=== PATIENT | male | born 1930 | race Caucasian/White ===

== ENCOUNTER 2017-12-26 12:59 | Outpatient (CLI) | payer MEDICARE, OTHER | END 2017-12-26 13:00 | disposition EMS.NT | LOC: EMS 12:59 | PROVIDERS: ATTEND Surgery | DX: R50.9 Fever, unspecified (principal) ==

== ENCOUNTER 2018-02-12 04:25 | Outpatient (CLI) | payer MEDICARE, OTHER | END 2018-02-12 04:26 | disposition critical access hospital (66) | LOC: EMS 04:25 | PROVIDERS: ATTEND Surgery | DX: S09.90XA Unspecified injury of head, initial encounter (principal); W01.198A Fall on same level from slipping, tripping and stumbling with subsequent striking against other object, initial encounter; Y93.01 Activity, walking, marching and hiking; Y92.098 Other place in other non-institutional residence as the place of occurrence of the external cause | CPT/HCPCS: A0425; A0429 ==

== ENCOUNTER 2018-02-12 04:43 | Emergency (ER) | payer MEDICARE, OTHER ==
--- NOTE | 2018-02-12 05:19 | ED Physician Documentation ---
PD HPI Fall - Stated complaint Stated Complaint: GLF - Chief complaint Chief Complaint: Trauma Hd/Nk - History obtained from History obtained from: EMS - History of Present Illness Mechanism of injury: Tripped Fall distance: Standing position Where injury occurred: Other (assisted living facility) Timing - onset: How many hours ago (less than one hour APPLICATIONS SPECIALIST) Injury(ies) location: Head Contributing factors: No: Anticoagulated - Additional information Additional information: Patient does not provide any meaningful contribution to HPI or review of systems; it is unclear if this is due to dementia or hard of hearing. Per staff at assisted living facility, patient had a witnessed trip and fall shortly before arrival to ED. Patient denies having any pain. He is aware there is a bump on his head, but tells me I have no idea as to how long it has been there. he is extremely hard of hearing, and I communicate by writing down questions. He provides simple answers to my questions, and is mostly aggravated at how long he has been here and just wants to go back home. Review of Systems Unable to obtain: Other (see HPI) PD PAST MEDICAL HISTORY - Past Medical History Cardiovascular: High cholesterol, Atrial fibrillation, Hypertension Respiratory: COPD Endocrine/Autoimmune: Type 2 diabetes GI: Hepatitis, Diverticulitis : Benign prostate hypertrophy, Incontinence HEENT: Chronic hearing loss Psych: None Musculoskeletal: Osteoarthritis Derm: None - Past Surgical History Past Surgical History: Yes General: Bowel surgery - Present Medications Home Medications: Ambulatory Orders Medication Instructions Recorded Confirmed Desipramine HCl [Norpramin] 10 mg PO DAILY 08/05/14 09/27/14 Digoxin 1 tab DAILY 08/05/14 09/27/14 Donepezil HCl [Aricept] 1 tab DAILY 08/05/14 09/27/14 Duloxetine HCl [Cymbalta] 2 tab DAILY 08/05/14 09/27/14 Finasteride 1 tab DAILY 08/05/14 09/27/14 Gabapentin 1 tab BID 08/05/14 09/27/14 Metformin HCl [Glucophage] 1 tab BID 08/05/14 09/27/14 Potassium Chloride 1 tab DAILY 08/05/14 09/27/14 Simvastatin [Zocor] 1 tab QPM 08/05/14 09/27/14 Tamsulosin [Flomax] 1 tab DAILY 08/05/14 09/27/14 - Allergies Allergies/Adverse Reactions: Allergies Allergy/AdvReac Type Severity Reaction Status Date / Time No Known Drug Allergies Allergy Verified 02/12/18 04:51 - Social History Does the pt smoke?: No Smoking Status: Never smoker Does the pt drink ETOH?: No Does the pt have substance abuse?: No - Immunizations Immunizations are current?: Yes - POLST Patient has POLST: Yes PD ED PE NORMAL - Vitals Vital signs reviewed: Yes - General General: No acute distress, Well developed/nourished, Other (oriented x 2) - HEENT HEENT: PERRL, EOMI - Neck Neck: No bony TTP - Cardiac Cardiac: RRR, No murmur - Respiratory Respiratory: No respiratory distress, Clear bilaterally - Back Back: No spinal TTP - Extremities Extremities: No deformity, No tenderness to palpate, Normal ROM s pain PD ED PE EXPANDED - HEENT HEENT Visual: 1 - bruising, swelling, tenderness Results - Vitals Vitals: Vital Signs - 24 hr 02/12/18 02/12/18 04:44 07:06 Temperature 36.0 C L Heart Rate 66 70 Respiratory 18 18 Rate Blood Pressure 192/89 H 176/94 H O2 Saturation 95 92 Oxygen O2 Source Room air - Rads (name of study) CT head Radiology: Prelim report reviewed, See rad report PD MEDICAL DECISION MAKING - ED course Complexity details: reviewed results, re-evaluated patient, considered differential, d/w patient Departure - Departure Disposition: 01 Home, Self Care Clinical Impression: Fall, Closed head injury, Scalp hematoma Condition: Good Instructions: ED Contusion Scalp, ED Head Injury Closed Follow-Up: Seth Diaz MD [Primary Care Provider] - Discharge Date/Time: 02/12/18 07:07
--- NOTE | 2018-02-12 06:24 | CT Report ---
Reason: fall, right scalp hematoma Procedure Date: 02/12/2018 Accession Number: [id number] / [id number] Procedure: CT - Head W/O CPT Code: FULL RESULT: EXAM: CT HEAD EXAM DATE: 02/12/2018 05:53 AM. CLINICAL HISTORY: Fall, right scalp hematoma, head pain. COMPARISON: BRAIN 07/29/2012 11:13 AM. TECHNIQUE: Multiaxial CT images were obtained from the foramen magnum to the vertex. Reformats: Sagittal and coronal. IV contrast: None. In accordance with CT protocol optimization, one or more of the following dose reduction techniques were utilized for this exam: automated exposure control, adjustment of mA and/or KV based on patient size, or use of iterative reconstructive technique. FINDINGS: Parenchyma: No intraparenchymal hemorrhage. No evidence of mass, midline shift, or CT findings of acute infarction. Shipman-white differentiation is distinct. Mild diffuse chronic microangiopathic white matter changes are evident. Extraaxial Spaces: Normal for age. No subdural or epidural collections identified. Ventricles: The ventricles and cortical sulci are moderately enlarged, consistent with age-related tissue loss. Sinuses and orbits: Postsurgical changes from cataract extractions are noted in the globes. The paranasal and mastoid sinuses are not opacified. Bones: No evidence of fracture or calvarial defect. Other: Mild intracranial atherosclerosis is present. IMPRESSION: 1. No acute intracranial process. 2. Large right parietal scalp hematoma without calvarial fracture. RADIA
[2018-02-12 07:07] VITALS: BP 176/94
== END 2018-02-12 07:07 | disposition home or self-care (01) ==
LOC: EDUNIT# → ED 04:43
DX: S00.03XA Contusion of scalp, initial encounter (principal); S09.90XA Unspecified injury of head, initial encounter; W01.0XXA Fall on same level from slipping, tripping and stumbling without subsequent striking against object, initial encounter; Y92.099 Unspecified place in other non-institutional residence as the place of occurrence of the external cause; H91.90 Unspecified hearing loss, unspecified ear; I10 Essential (primary) hypertension; E11.9 Type 2 diabetes mellitus without complications; Z79.84 Long term (current) use of oral hypoglycemic drugs
CPT/HCPCS: 36415; 70450; 99282; 99283

== ENCOUNTER 2018-04-06 23:00 | Outpatient (CLI) | payer MEDICARE, OTHER | END 2018-04-06 23:01 | disposition EMS.NT | LOC: EMS 23:00 | PROVIDERS: ATTEND Surgery | DX: Z03.89 Encounter for observation for other suspected diseases and conditions ruled out (principal) ==

== ENCOUNTER 2018-07-27 23:57 | Outpatient (CLI) | payer MEDICARE, OTHER | END 2018-07-27 23:58 | disposition critical access hospital (66) | LOC: EMS 23:57 | PROVIDERS: ATTEND Surgery | DX: S01.01XA Laceration without foreign body of scalp, initial encounter (principal); W18.30XA Fall on same level, unspecified, initial encounter; Y92.099 Unspecified place in other non-institutional residence as the place of occurrence of the external cause | CPT/HCPCS: A0425; A0429 ==

== ENCOUNTER 2018-07-28 00:13 | Emergency (ER) | payer MEDICARE, OTHER ==
--- NOTE | 2018-07-28 00:26 | ED Physician Documentation ---
History of Present Illness - Stated complaint Stated Complaint: GLF - Chief complaint Chief Complaint: Laceration - History obtained from History obtained from: Patient - History of Present Illness Timing: Prior to arrival - Additonal information Additional information: Patient is an 88-year-old male presenting from nursing facility after mechanical fall just prior to arrival. Patient reports that he tripped and excellently struck his head on a piece of furniture, likely a chair. Patient complains of laceration with bleeding and mild tenderness to the back of his head. No LOC. Patient denies other head pain, vision changes, epistaxis, intraoral trauma, as well as neck pain, back pain, chest pain, abdominal pain, or extremity injury. Patient does admit to superficial abrasion to right knee only. Patient denies any particular symptoms or changes from his baseline health prior to fall.No anticoagulation. Assuming vaccinations are current as patient is in a facility. No other improving or worsening factors noted. Review of Systems Skin: reports: Abrasion (s) Neurologic: reports: Headache, Head injury. denies: LOC PD PAST MEDICAL HISTORY - Past Medical History Cardiovascular: High cholesterol, Atrial fibrillation, Hypertension Respiratory: COPD Endocrine/Autoimmune: Type 2 diabetes GI: Hepatitis, Diverticulitis : Benign prostate hypertrophy, Incontinence HEENT: Chronic hearing loss Psych: None Musculoskeletal: Osteoarthritis Derm: None - Past Surgical History Past Surgical History: Yes General: Bowel surgery - Present Medications Home Medications: Ambulatory Orders Medication Instructions Recorded Confirmed Digoxin 1 tab DAILY 08/05/14 07/28/18 Duloxetine HCl [Cymbalta] 2 tab DAILY 08/05/14 07/28/18 Finasteride 1 tab DAILY 08/05/14 07/28/18 Gabapentin 1 tab BID 08/05/14 07/28/18 Metformin HCl [Glucophage] 1 tab BID 08/05/14 07/28/18 Potassium Chloride 1 tab DAILY 08/05/14 07/28/18 Simvastatin [Zocor] 1 tab QPM 08/05/14 07/28/18 Tamsulosin [Flomax] 1 tab DAILY 08/05/14 07/28/18 Acetaminophen [Tylenol] 650 mg PO Q6H PRN 07/28/18 07/28/18 Bisacodyl 10 mg RC PRN 07/28/18 07/28/18 Calcium Carb/Magnesium Hydrox 1 each PO 07/28/18 [Antacid Extra Strngth Tab Chew] Furosemide 40 mg PO 07/28/18 Ibuprofen [Motrin] 400 mg PO 07/28/18 - Allergies Allergies/Adverse Reactions: Allergies Allergy/AdvReac Type Severity Reaction Status Date / Time No Known Drug Allergies Allergy Verified 02/12/18 04:51 - Social History Does the pt smoke?: No Smoking Status: Never smoker Does the pt drink ETOH?: No Does the pt have substance abuse?: No - Immunizations Immunizations are current?: Yes - POLST Patient has POLST: Yes PD ED PE NORMAL - Vitals Vital signs reviewed: Yes - General General: Alert and oriented X 3, No acute distress, Well developed/nourished - HEENT HEENT: EOMI (No epistaxis. Gross visual acuity intact.), Moist mucous membranes, Pharynx benign, Dentition benign (Dentures in place). No: Atraumatic (Atraumatic without periorbital swelling or ecchymosis, facial bone tenderness or instability, epistaxis, raccoon eyes, clark signs except for less than 1 inch superficial abrasion to top of scalp.) - Neck Neck: No bony TTP - Cardiac Cardiac: RRR, No murmur - Respiratory Respiratory: No respiratory distress, Clear bilaterally - Abdomen Abdomen: Soft, Non tender, Non distended - Derm Derm: Normal color, Warm and dry, No rash, Other (Less than dime size superficial abrasion to right knee without signs of infection or other complication. No tenderness to the area.) - Extremities Extremities: No deformity, No tenderness to palpate, No edema, No calf tenderness / cord - Neuro Neuro: Alert and oriented X 3, No motor deficit, No sensory deficit - Psych Psych: Normal mood, Normal affect Results - Vitals Vitals: Vital Signs - 24 hr 07/28/18 00:21 Temperature 36.6 C Heart Rate 53 L Respiratory 20 Rate Blood Pressure 150/98 H O2 Saturation 97 Oxygen O2 Source Room air Procedures - Laceration (location) Scalp Length in cm: 1.5 Wound type: Linear, Superficial Neurovascular status: Sensory intact, Motor intact, Vascular intact Wound Preparation: Irrigated copiously NS Skin layer closure: Kyra (2) Other: Patient tolerated well, No complications, Neurovascular intact Complexity: Simple PD MEDICAL DECISION MAKING - ED course Complexity details: reviewed results, re-evaluated patient, considered differential, d/w patient ED course: Patient presenting after mechanical fall. Patient denies symptoms would raise high suspicion for acute pathology such as stroke, PE, ACS, alcohol infarction, unstable angina, or other infection as source of fall. Patient sustained superficial laceration to his scalp which was appropriately cleaned and repaired in the ED without issue.CT head obtained to rule out stroke or intracranial injury from fall, which returned without acute pathology. Do not feel patient requires other invasive testing or imaging at this time. Of note, patient was ambulatory in the ED and was found sitting in the hallway. It is unclear if patient fell, but he denies such and otherwise states he has no complaints. Feel that this is likely his baseline. Repeat exam does not find evidence of new acute pathology. Feel that he is still safe to discharge home. Discussed return precautions, appropriate follow-up, timing of staple removal, and other supportive cares. Departure - Departure Clinical Impression: Laceration Closed head injury Qualifiers: Encounter type: initial encounter Qualified Code(s): S09.90XA - Unspecified injury of head, initial encounter Condition: Good Instructions: ED Laceration Scalp Stitch Or Stap, ED Head Injury Closed Follow-Up: Kei Mcnulty DO [Primary Care Provider] - Within 3 Days Comments: Please continue all home medications as previously instructed. Please keep wound clean and dry using shampoo and running water to clean only. Do not scrub.Please return to the ED, urgent care, your primary care physician in 10 days for staple removal. Please be aware of possible concussion and closed head injury and advise following of Concussion restrictions and precautions. Recommend follow-up with primary care physician next 2 to 3 days for reevaluation of this and hopefully approval to return to full activity. Return to ED sooner if experience worsening symptoms or other concerns.
--- NOTE | 2018-07-28 01:59 | CT Report ---
Reason: fall with lac to posterior scalp Procedure Date: 07/28/2018 Accession Number: [id number] / [id number] Procedure: CT - HEAD WO CPT Code: FULL RESULT: EXAM: CT HEAD EXAM DATE: 07/28/2018 01:16 AM. CLINICAL HISTORY: Fall with laceration to posterior scalp. COMPARISON: HEAD W/O 02/12/2018 5:35 AM. TECHNIQUE: Multiaxial CT images were obtained from the foramen magnum to the vertex. Reformats: Sagittal and coronal. IV contrast: None. In accordance with CT protocol optimization, one or more of the following dose reduction techniques were utilized for this exam: automated exposure control, adjustment of mA and/or KV based on patient size, or use of iterative reconstructive technique. FINDINGS: Parenchyma: No intraparenchymal hemorrhage. No evidence of mass, midline shift, or CT findings of acute infarction. Shipman-white differentiation is distinct. Diffuse chronic microangiopathic white matter changes are evident. Extraaxial Spaces: Normal for age. No subdural or epidural collections identified. Ventricles: The ventricles and cortical sulci are enlarged, consistent with age-related tissue loss. Sinuses and orbits: Imaged paranasal sinuses, orbits, and mastoids show no significant abnormality. Bones: No evidence of fracture or calvarial defect. Other: Scalp laceration at the vertex with skin sylwia. IMPRESSION: Generalized age-related cortical atrophic changes without evidence of acute intracranial abnormality. RADIA
[2018-07-28 02:57] VITALS: BP 164/100
== END 2018-07-28 02:57 | disposition home or self-care (01) ==
LOC: EDUNIT# → ED 00:13
DX: S01.01XA Laceration without foreign body of scalp, initial encounter (principal); S09.90XA Unspecified injury of head, initial encounter; S80.211A Abrasion, right knee, initial encounter; W01.190A Fall on same level from slipping, tripping and stumbling with subsequent striking against furniture, initial encounter; Y92.129 Unspecified place in nursing home as the place of occurrence of the external cause; I10 Essential (primary) hypertension; E11.9 Type 2 diabetes mellitus without complications; Z79.84 Long term (current) use of oral hypoglycemic drugs
CPT/HCPCS: 12001; 70450; 99282

== ENCOUNTER 2018-07-28 02:58 | Outpatient (CLI) | payer MEDICARE, OTHER | END 2018-07-28 02:59 | disposition home or self-care (01) | LOC: EMS 02:58 | PROVIDERS: ATTEND Surgery | DX: S01.01XA Laceration without foreign body of scalp, initial encounter (principal); F03.90 Unspecified dementia, unspecified severity, without behavioral disturbance, psychotic disturbance, mood disturbance, and anxiety; W18.30XA Fall on same level, unspecified, initial encounter | CPT/HCPCS: A0425; A0428 ==

== ENCOUNTER 2018-08-29 13:06 | Day surgery (SDC) | payer MEDICARE, OTHER ==
[~2018-08-29 13:06] MED LIST: CEFAZOLIN SODIUM IN 0.9 % NACL 2 GM/100 ML BAG IV ONE
[2018-08-29] MEDS ORDERED: BUPIVACAINE 0.5%-EPI 1:200000 PF 30 ML VIAL ONE (13:12)
[2018-08-29] MEDS ORDERED: LIDOCAINE-MPF 1% 30 ML VIAL ONE (13:12)
--- NOTE | 2018-08-29 13:26 | ANESTHESIA ---
Pre-Anesthesia VS, & Labs - Diagnosis Right buttock hematoma - Procedure Incision/drainage right buttock hematoma Height 6 ft Body Mass Index 24.4 - NPO >8 hours Home Medications and Allergies Home Medications: Ambulatory Orders Loperamide [Imodium] 2 tab PO ONCE 08/29/18 Mag Hydrox/Al Hydrox/Simeth [Antacid Suspension] 30 ml PO Q4HR PRN 08/29/18 Magnesium Hydroxide [Milk of Magnesia] 30 ml PO ONCE PRN 08/29/18 Digoxin 0.125 mg PO DAILY 08/05/14 Duloxetine HCl [Cymbalta] 60 mg PO DAILY 08/05/14 Finasteride 5 mg PO DAILY 08/05/14 Gabapentin 300 tab PO QPM 08/05/14 Metformin HCl [Glucophage] 500 mg PO BID 08/05/14 Potassium Chloride 20 meq PO DAILY 08/05/14 Simvastatin [Zocor] 20 mg PO QPM 08/05/14 Tamsulosin [Flomax] 0.4 mg PO DAILY 08/05/14 Acetaminophen [Tylenol] 650 mg PO Q6H PRN 07/28/18 Bisacodyl 10 mg RC ONCE 07/28/18 Calcium Carb/Magnesium Hydrox [Antacid Extra Strngth Tab Chew] 2 tab PO DAILY 07/28/18 Furosemide 40 mg PO DAILY 07/28/18 Ibuprofen [Motrin] 400 mg PO DAILY 07/28/18 Loperamide [Imodium] 2 tab PO ONCE 08/29/18 Mag Hydrox/Al Hydrox/Simeth [Antacid Suspension] 30 ml PO Q4HR PRN 08/29/18 Magnesium Hydroxide [Milk of Magnesia] 30 ml PO ONCE PRN 08/29/18 Allergies/Adverse Reactions: Allergies Allergy/AdvReac Type Severity Reaction Status Date / Time No Known Drug Allergies Allergy Verified 02/12/18 04:51 Anes History & Medical History - Anesthetic History Anesthesia Complications: reports: Emergence delirium Family history of Anesthesia Complications: Denies Family history of Malignant Hyperthermia: Denies - Medical History Cardiovascular: reports: High cholesterol, Atrial fibrillation, Hypertension Pulmonary: reports: COPD Gastrointestinal: reports: Hepatitis, Diverticulitis Urinary: reports: Benign prostate hypertrophy, Incontinence Musculoskeletal: reports: Osteoarthritis Endocrine/Autoimmune: reports: Type 2 diabetes Blood Disorders: reports: None Skin: reports: None Smoking Status: Never smoker - Surgical History General: Bowel surgery Exam General: Other (dementia) Dental: Loose/Frag, Dentures full Upper Mouth Openin Fingerbreadth Neck Mobility: Normal Mallampati classification: II Thyromental Distance: greater than 6 cm Respiratory: Lungs clear Cardiovascular: Normal S1, Normal S2 Plan Anesthesia Type: General Consent for Procedure(s) Verified and Reviewed: Yes Code Status: Attempt Resuscitation ASA classification: 3-Severe systemic disease Is this case an emergency?: No
[2018-08-29] MEDS ORDERED: LACTATED RINGERS 1,000 ML IV ONE (13:40)
[2018-08-29] MEDS ORDERED: LIDOCAINE 1% 50 ML MDV SUBQ ONE ×2 (14:20)
[2018-08-29] MEDS ORDERED: BUPIVACAINE 0.5%-EPI 1:200000 PF 30 ML VIAL SUBQ ONE ×2 (14:20)
[2018-08-29] MEDS ORDERED: PROPOFOL 200 MG/20 ML VIAL IVP ONE (14:45)
[2018-08-29] MEDS ORDERED: fentaNYL 100 MCG/2 ML VIAL IVP ONE (14:45)
[2018-08-29] MEDS ORDERED: HYDROcod/ACETAM 5/325 MG TABLET PO PRN (14:59)
--- NOTE | 2018-08-29 15:44 | OPERATIVE REPORT ---
Operative Report - General Procedure Date: 08/29/18 Planned Procedure: Incision and drainage of right buttock hematoma Pre-Op Diagnosis: Large right buttock hematoma Procedure Performed: Incision and drainage of right buttock hematoma with drain placement Post Op Diagnosis: Same - Procedure Note Primary Surgeon: Chichi Anesthesia Provider: SLICK Tyler Anesthesia Technique: Local, MAC Estimated Blood Loss (mL): 10 Drain/Tube Type: Maximino drain (19 [place] Maximino drain in the hematoma pocket) Findings: 260 mls of clotted and liquid blood Complications: None apparent - Other Other Information/Narrative: After obtaining informed consent the patient is brought to the operating room and placed in the left lateral decubitus position on his bed.Following successful induction of sedation per anesthesia, the right buttock and hip were prepped and draped in standard surgical fashion. A timeout was held per NMOAP protocol. Following infiltration with local anesthetic to create a field block, an incision was created in the more superior portion of the pocket approximately 2 cm long.Suction was placed in the pocket and liquid blood was aspirated.The surgeon's finger was placed in the pocket to break up the mural thrombus along the edges and this was aspirated as well. The pocket was then irrigated with 2 L of warm saline solution and aspirated free of all blood and particulate m atter.In 19 [place] Maximino drain was placed in the pocket and brought out laterally. It was sewn into place with nylon suture. The incision was closed with running and interrupted nylons. All sponge, needle, and instrument counts were correct at the conclusion of the case the patient was allowed to awaken from sedation without significant difficulty and taken back to the postanesthesia care unit in good condition.
[2018-08-29 16:05] VITALS: BP 135/92
== END 2018-08-29 13:07 | disposition home or self-care (01) ==
LOC: SDS 13:06
PROVIDERS: ATTEND Surgery
PROC: 0H98XZZ Drainage of Buttock Skin, External Approach (ICD-10-PCS; principal; 2018-08-29 14:15)
DX: S30.0XXA Contusion of lower back and pelvis, initial encounter (principal); H91.90 Unspecified hearing loss, unspecified ear; G30.9 Alzheimer's disease, unspecified; F02.80 Dementia in other diseases classified elsewhere, unspecified severity, without behavioral disturbance, psychotic disturbance, mood disturbance, and anxiety; E11.9 Type 2 diabetes mellitus without complications; I48.91 Unspecified atrial fibrillation; I11.0 Hypertensive heart disease with heart failure; I50.9 Heart failure, unspecified; J44.9 Chronic obstructive pulmonary disease, unspecified; Z91.81 History of falling; Z79.899 Other long term (current) drug therapy; Z79.84 Long term (current) use of oral hypoglycemic drugs; Z87.891 Personal history of nicotine dependence
CPT/HCPCS: 10140; J0690; J7120

== ENCOUNTER 2019-03-22 15:26 | Outpatient (CLI) | payer MEDICARE, OTHER ==
--- NOTE | 2019-03-23 03:39 | Ultrasound Report ---
Reason: CONTUSION OF LOWER BACK AND PELVIS Procedure Date: 03/22/2019 Accession Number: [id number] / [id number] Procedure: US - Chest CPT Code: Final Report FULL RESULT: EXAM: ULTRASOUND PELVIS LIMITED EXAM DATE: 03/22/2019 04:35 PM. CLINICAL HISTORY: CONTUSION OF LOWER BACK AND PELVIS. COMPARISON: None. TECHNIQUE: Targeted sonographic evaluation of the area of bruising over the lower back and left buttock was performed. Static and cine images were obtained. FINDINGS: No discrete mass or fluid collection is seen in the soft tissues in the area of concern. No hyperemia is seen. IMPRESSION: No sonographic abnormalities in the soft tissues of the area of bruising. RADIA
== END 2019-03-22 15:27 | disposition home or self-care (01) ==
LOC: DI 15:26
PROVIDERS: ATTEND Nurse Practitioner Family
DX: S30.0XXA Contusion of lower back and pelvis, initial encounter (principal)
CPT/HCPCS: 76604

== ENCOUNTER 2019-04-23 08:53 | Outpatient (CLI) | payer MEDICARE, OTHER | END 2019-04-23 08:54 | disposition critical access hospital (66) | LOC: EMS 08:53 | PROVIDERS: ATTEND Surgery | DX: S39.91XA Unspecified injury of abdomen, initial encounter (principal); W18.11XA Fall from or off toilet without subsequent striking against object, initial encounter; Y92.091 Bathroom in other non-institutional residence as the place of occurrence of the external cause | CPT/HCPCS: A0425; A0429 ==

== ENCOUNTER 2019-04-23 09:10 | Emergency (ER) | payer MEDICARE, OTHER ==
--- NOTE | 2019-04-23 09:50 | ED Physician Documentation ---
History of Present Illness - Stated complaint Stated Complaint: WEAKNESS - Chief complaint Chief Complaint: General - History obtained from History obtained from: Patient - History of Present Illness Timing: Unknown - Additonal information Additional information: Pt was brought to the ED for stated complaint of "weakness", but the patient states he does not really know why he is here. He states he lives at home by himself, but that his son checks in on him. He does not know if his son sent him to the ED or not. He states he has had pain in the right side of his abdomen, but he is not sure how long. He denies chest pain or shortness of breath. No fevers or cough. No dysuria. No back pain. No nausea or vomiting. No diarrhea or blood in his stools. No other complaints at this time. Further history was provided by the legal office administrator of the assisted living facility where the patient lives. She did arrive and stated that the patient had taken a fall a couple of days ago and apparently struck his right side. The patient has gone about his normal activities for the last couple days, though he is seem to be uncomfortable. However, today the staff noticed that he seemed to look "great" and sent him to the emergency department for this reason. Medics did find him to have lower sats in the upper 80s. Patient is not known to have any history of COPD or other lung issues. Review of Systems Ten Systems: 10 systems reviewed and negative Constitutional: reports: Reviewed and negative Eyes: reports: Reviewed and negative Ears: reports: Reviewed and negative Nose: reports: Reviewed and negative Throat: reports: Reviewed and negative Cardiac: reports: Reviewed and negative Respiratory: reports: Reviewed and negative GI: reports: Abdominal Pain : reports: Reviewed and negative Skin: reports: Reviewed and negative Musculoskeletal: reports: Reviewed and negative Neurologic: reports: Reviewed and negative Psychiatric: reports: Reviewed and negative Endocrine: reports: Reviewed and negative Immunocompromised: reports: Reviewed and negative PD PAST MEDICAL HISTORY - Past Medical History Cardiovascular: High cholesterol, Atrial fibrillation, Hypertension Respiratory: COPD Endocrine/Autoimmune: Type 2 diabetes GI: Hepatitis, Diverticulitis : Benign prostate hypertrophy, Incontinence HEENT: Chronic hearing loss Psych: None Musculoskeletal: Osteoarthritis Derm: None - Past Surgical History Past Surgical History: Yes General: Bowel surgery - Present Medications Home Medications: Ambulatory Orders Medication Instructions Recorded Confirmed Digoxin 0.125 mg PO DAILY 08/05/14 08/29/18 Duloxetine HCl [Cymbalta] 60 mg PO DAILY 08/05/14 08/29/18 Finasteride 5 mg PO DAILY 08/05/14 08/29/18 Gabapentin 300 tab PO QPM 08/05/14 08/29/18 Metformin HCl [Glucophage] 500 mg PO BID 08/05/14 08/29/18 Potassium Chloride 20 meq PO DAILY 08/05/14 08/29/18 Simvastatin [Zocor] 20 mg PO QPM 08/05/14 08/29/18 Tamsulosin [Flomax] 0.4 mg PO DAILY 08/05/14 08/29/18 Acetaminophen [Tylenol] 650 mg PO Q6H PRN 07/28/18 08/29/18 Bisacodyl 10 mg RC ONCE 07/28/18 08/29/18 Calcium Carb/Magnesium Hydrox 2 tab PO DAILY 07/28/18 08/29/18 [Antacid Extra Strngth Tab Chew] Furosemide 40 mg PO DAILY 07/28/18 08/29/18 Ibuprofen [Motrin] 400 mg PO DAILY 07/28/18 08/29/18 HYDROcod/ACETAM 5/325 [[place] 5/325] 1 tab PO Q6H PRN #20 tablet 08/29/18 Loperamide [Imodium] 2 tab PO ONCE 08/29/18 08/29/18 Mag Hydrox/Al Hydrox/Simeth 30 ml PO Q4HR PRN 08/29/18 08/29/18 [Antacid Suspension] Magnesium Hydroxide [Milk of 30 ml PO ONCE PRN 08/29/18 08/29/18 Magnesia] - Allergies Allergies/Adverse Reactions: Allergies Allergy/AdvReac Type Severity Reaction Status Date / Time No Known Drug Allergies Allergy Verified 02/12/18 04:51 - Social History Does the pt smoke?: No Smoking Status: Never smoker Does the pt drink ETOH?: No Does the pt have substance abuse?: No - Immunizations Immunizations are current?: Yes - POLST Patient has POLST: Yes PD ED PE NORMAL - Vitals Vital signs reviewed: Yes - General General: No acute distress, Other (Patient is alert, but very hard of hearing.He answers questions appropriately, but often states "I do not know" when asked historical questions.) - HEENT HEENT: PERRL - Neck Neck: Supple, no meningeal sign - Cardiac Cardiac: RRR, No murmur - Respiratory Respiratory: Clear bilaterally - Abdomen Abdomen: Soft, Non distended, Other (Patient has moderate tenderness in his right upper quadrant and right flank. 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 He is very hard of hearing.) Eye Opening: Spontaneous Motor: Obeys Commands Verbal: Confused GCS Score: 14 - Psych Psych: Normal mood, Normal affect Results - Vitals Vitals: Vital Signs - 24 hr 04/23/19 04/23/19 04/23/19 09:16 09:20 10:20 Temperature 37 C 36.6 C Heart Rate 88 89 82 Respiratory 35 H 34 H 27 H Rate Blood Pressure 125/90 H 105/71 90/63 O2 Saturation 94 88 L 96 04/23/19 04/23/19 04/23/19 10:30 11:00 11:30 Temperature Heart Rate 86 75 88 Respiratory 16 30 H 23 Rate Blood Pressure 90/63 108/88 H 105/85 H O2 Saturation 97 94 95 04/23/19 04/23/19 04/23/19 12:31 13:00 13:06 Temperature Heart Rate 91 97 95 Respiratory 31 H 25 H Rate Blood Pressure 100/72 66/48 L 82/63 L O2 Saturation 85 L 89 L 04/23/19 04/23/19 04/23/19 13:15 13:20 13:30 Temperature Heart Rate 96 94 97 Respiratory 30 H 33 H 29 H Rate Blood Pressure 111/81 H 122/88 H 117/58 L O2 Saturation 99 99 100 04/23/19 04/23/19 04/23/19 13:40 13:57 14:00 Temperature Heart Rate 106 H 95 93 Respiratory 29 H 36 H 33 H Rate Blood Pressure 97/61 94/65 70/51 L O2 Saturation 99 99 99 04/23/19 04/23/19 04/23/19 14:06 14:11 14:20 Temperature Heart Rate 89 88 88 Respiratory 31 H 30 H 31 H Rate Blood Pressure 75/60 L 96/70 90/72 O2 Saturation 99 99 98 04/23/19 04/23/19 04/23/19 14:30 14:40 14:44 Temperature 36.4 C L 97.4 C H Heart Rate 92 90 86 Respiratory 30 H 36 H 30 H Rate Blood Pressure 86/67 L 82/55 L 82/55 L O2 Saturation 100 100 04/23/19 04/23/19 14:50 15:16 Temperature 36.3 C L Heart Rate 89 88 Respiratory 34 H 30 H Rate Blood Pressure 82/61 L 80/52 L O2 Saturation 100 Oxygen O2 Source Room air Oxygen Flow Rate 4 - Labs Labs: Laboratory Tests 04/23/19 04/23/19 04/23/19 09:56 09:56 09:56 WBC 14.2 H RBC 5.19 Hgb 13.7 L Hct 43.8 MCV 84.4 MCH 26.4 L MCHC 31.3 L RDW 14.9 Plt Count 233 MPV 9.7 Neut # (Auto) 11.3 H Lymph # (Auto) 1.3 L [place] # (Auto) 1.4 H Eos # (Auto) 0.1 Baso # (Auto) 0.1 Absolute Nucleated RBC 0.00 Total Counted Band Neuts % (Manual) Abnorm Lymph % (Manual) Nucleated RBC % 0.0 Neutrophils # (Manual) Lymphocytes # (Manual) Monocytes # (Manual) Eosinophils # (Manual) Basophils # (Manual) Differential Comment Manual Slide Review Platelet Estimate Platelet Morphology RBC Morph Micro Appear PT INR Sodium 136 Potassium 4.0 Chloride 99 L Carbon Dioxide 26 Anion Gap 11.0 BUN 16 Creatinine 1.1 Estimated GFR (MDRD) 63 L Glucose 211 H Calcium 8.5 Total Bilirubin 1.8 H AST 15 ALT < 10 L Alkaline Phosphatase 67 Troponin I High Sens 36.3 H* Total Protein 7.1 Albumin 4.0 Globulin 3.1 Albumin/Globulin Ratio 1.3 Lipase 22 Blood Type Antibody Screen Crossmatch IS Only 04/23/19 04/23/19 04/23/19 13:42 14:13 14:13 WBC 15.5 H RBC 4.00 L Hgb 10.6 L Hct 35.0 L MCV 87.5 MCH 26.5 L MCHC 30.3 L RDW 14.9 Plt Count 222 MPV 10.4 Neut # (Auto) Not Reportable Lymph # (Auto) Not Reportable [place] # (Auto) Not Reportable Eos # (Auto) Not Reportable Baso # (Auto) Not Reportable Absolute Nucleated RBC Not Reportable Total Counted 100 Band Neuts % (Manual) 1 Abnorm Lymph % (Manual) 0 Nucleated RBC % Not Reportable Neutrophils # (Manual) 12.1 H Lymphocytes # (Manual) 2.3 Monocytes # (Manual) 0.9 Eosinophils # (Manual) 0.0 Basophils # (Manual) 0.2 H Differential Comment MANUAL DIFFERENTIAL Manual Slide Review Indicated Platelet Estimate NORMAL (130-450,000) Platelet Morphology NORMAL APPEARANCE RBC Morph Micro Appear NORMAL APPEARANCE PT 14.7 H INR 1.3 H Sodium Potassium Chloride Carbon Dioxide Anion Gap BUN Creatinine Estimated GFR (MDRD) Glucose Calcium Total Bilirubin AST ALT Alkaline Phosphatase Troponin I High Sens Total Protein Albumin Globulin Albumin/Globulin Ratio Lipase Blood Type O POSITIVE Antibody Screen NEGATIVE Crossmatch IS Only See Detail - Rads (name of study) chest xr Radiology: Final report received, Discussed with rads, EMP read indepedently (IMPRESSION: Slightly increased small to moderate sized right-sided pleural effusion.) ct abd/pelvis Radiology: Final report received, Discussed with rads, EMP read indepedently (Acute fracture of the 9-11th ribs with right sided hemothorax and evidence of active extravasation. IVC is decompressed concerning for pending hemodynamic instability; enlarging markedly enlarged infrarenal abdominal aortic aneurysm measuring up to 7.8 x 7.1 cm, previously 6.9 x 5.9 cm on 08/05/2014. Incidental note is made of pneumatosis in the cecum without additional concerning findings of bowel wall thickening or portal venous gas. This may represent a benign incidental finding. However in the presence of right-sided abdominal pain, a GI consultation may be of benefit.) Chest x-ray Radiology: Final report received, EMP read indepedently (Impression: Mid right pleural drain now present; persistent increased density in the mid to lower right chest which may reflect pleural field fluid.) Procedures - Chest Tube (location) right 5th middle axillary line Chest tube preparation: Unable to consent (Urgency of situation precluded; patient confused and unable to consent.), Time out completed, Sterile prep and drape Chest tube location: Right, Mid axillary line Chest tube anesthesia: Lidocaine Chest tube size: 40 Chest tube return: Blood, Volume of blood (enter cc (750 measured, plus est. 200 cc initially to floor before tube clamped.) Chest tube after care: Sutured, Confirmed with xray, Pt tolerated well PD MEDICAL DECISION MAKING - ED course Complexity details: reviewed old records, reviewed results, re-evaluated patient, considered differential, d/w patient ED course: Patient was worked up in the emergency department with labs, urinalysis, chest x-ray, and ultimately, CT scan of the abdomen and pelvis.Patient was found to have, primarily, 3 rib fractures with a significant hemothorax, superimposed upon patient's existing pleural effusion. He was also found to have an Abdominal aortic aneurysm which was pre-existing but somewhat larger than on his last imaging several years ago.The patient had been hemodynamically stable, and I was initiating the process of getting the patient transferred when I was summoned to the patient's room, due to the patient having become more agitated and developed hypotension with a blood pressure in the 60s over 40s. The patient was immediately started on a liter bolus point and normal saline and I did immediately place a 40 Welsh chest tube in the patient's right chest with significant bloody output. Repeat chest x-ray did show the tube to be in good placement. Stat blood transfusion was ordered for the patient, despite his initial H&H being normal. I spoke with Dr. Pleitez at [facility], who stated that he would like the patient to be stabilized here if possible, and if our surgeon was willing to do so,With plan to transfer the patient to [facility] is surgical ICU following. I spoke with Dr. Elam, who is on-call for surgery, and he stated that The patient needed transfer as we do not do any sort of care. I spoke with Dr. Pleitez again, and he did agree to accept the patient in transfer. He requested that the patient be sent by airlift, as the patient continued to have some hypotensive readings though much improved from before fluids and blood transfusion. - Critical Care Time(min): 90 Comments: Critical care was necessary to treat and preventImminent decline and , secondary to hemorrhagic shock, as well as secondary to acute hemorrhage into the pleural cavity, compromising lung volume and oxygenation. Time Includes: Direct patient care, Review records, Reassess patient, Document care, Coordinate care, Medical consult, Family consult for tx dec, See progress note Data interpretation: Labs, Pulse ox, CXR (And other radiology studies), Cardiac output, See progress note Procedures excluded from critical care time: Chest tube, EKG, See progress note Departure - Departure Disposition: 02 Transfer Acute Care Hosp Discharge Date/Time: 04/23/19 15:29
[2019-04-23 10:00] LABS: BASOPHILS # (AUTO) 0.1 10^3/uL (0.0-0.1); BASOPHILS % (AUTO) 0.4 %; EOSINOPHILS # (AUTO) 0.1 10^3/uL (0.0-0.7); EOSINOPHILS % (AUTO) 0.6 %; HGB - HEMOGLOBIN 13.7 g/dL (14.0-18.0); LYMPHOCYTES # (AUTO) 1.3 10^3/uL (1.5-3.5); LYMPHOCYTES % (AUTO) 9.3 %; MEAN CORPUSCULAR HEMOGLOBIN 26.4 pg (27.0-31.0); MEAN CORPUSCULAR HGB CONC 31.3 g/dL (32.0-36.0); MEAN CORPUSCULAR VOLUME 84.4 fL (80.0-94.0); MEAN PLATELET VOLUME 9.7 fL (7.4-11.4); MONOCYTES # (AUTO) 1.4 10^3/uL (0.0-1.0); NEUTROPHILS # (AUTO) 11.3 10^3/uL (1.5-6.6); NEUTROPHILS % (AUTO) 79.1 %; PLT - PLATELET COUNT 233 10^3/uL (130-450); RED BLOOD COUNT 5.19 10^6/uL (4.70-6.10); RED CELL DISTRIBUTION WIDTH 14.9 % (12.0-15.0); WHITE BLOOD COUNT 14.2 x10^3/uL (4.8-10.8)
--- NOTE | 2019-04-23 10:10 | XRAY Report ---
Reason: Chest pain Procedure Date: 04/23/2019 Accession Number: [id number] / [id number] Procedure: XR - Chest 1 View X-Ray CPT Code: 12989 Final Report FULL RESULT: EXAM: CHEST RADIOGRAPHY EXAM DATE: 04/23/2019 10:00 AM. CLINICAL HISTORY: Chest pain. COMPARISON: CHEST 1 VIEW 08/05/2014 3:24 PM. TECHNIQUE: 1 view. FINDINGS: Lungs/Pleura: Small to moderate size right-sided pleural effusion slightly increased on the prior examination. Mediastinum: Within exam limitations, the cardiomediastinal contour is normal. Other: None. IMPRESSION: Slightly increased small to moderate sized right-sided pleural effusion. RADIA
[2019-04-23 10:18] LABS: ALBUMIN/GLOBULIN RATIO 1.3 (1.0-2.2); ALKALINE PHOSPHATASE 67 IU/L (42-121); ALT ALANINE AMINOTRANSFERASE < 10 IU/L (10-60); AST ASPARTATE AMINOTRANSFERASE 15 IU/L (10-42); BILIRUBIN,TOTAL 1.8 mg/dL (0.2-1.0); BUN - BLOOD UREA NITROGEN 16 mg/dL (6-20); CALCIUM 8.5 mg/dL (8.5-10.3); CARBON DIOXIDE - CO2 26 mmol/L (21-32); CHLORIDE 99 mmol/L (101-111); CREATININE 1.1 mg/dL (0.6-1.2); GFR - MDRD 63 (>89); GLUCOSE 211 mg/dL (70-100); LIPASE 22 U/L (22-51); SODIUM 136 mmol/L (135-145); TOTAL PROTEIN 7.1 g/dL (6.7-8.2)
[2019-04-23] MEDS ORDERED: IOVERSOL 320 100 ML VIAL IVP ONE ×2 (11:40→12:45)
--- NOTE | 2019-04-23 12:42 | CT Report ---
Reason: abd pain Procedure Date: 04/23/2019 Accession Number: [id number] / [id number] Procedure: CT - ABDOMEN W CPT Code: Final Report FULL RESULT: EXAM: CT ABDOMEN WITHOUT AND WITH CONTRAST EXAM DATE: 04/23/2019 12:06 PM. CLINICAL HISTORY: Abd pain. COMPARISONS: ABDOMEN/PELVIS W/O 08/05/2014 4:04 PM. TECHNIQUE: Multiphasic CT of abdomen (pancreas) without and with IV contrast: 100 mL OPTIRAY 320. Enteric contrast: None. Reconstructions: Coronal and sagittal. In accordance with CT protocol optimization, one or more of the following dose reduction techniques were utilized for this exam: automated exposure control, adjustment of mA and/or KV based on patient size, or use of iterative reconstructive technique. FINDINGS: Lung Bases: Displaced fracture of the 11th rib posteriorly with complex fluid collection in the right pleural space with a wispy curvilinear hyperdensity extending from the region of the rib fracture into the pleural fluid collection consistent with active extravasation. Displaced fractures of the right 10th and ninth ribs also noted. Old healing/healed fracture of the left 10th rib. Pancreas: Normal. No mass, inflammation, or ductal dilatation. No pseudocysts or pancreatic necrosis. Other Solid Organs: Normal. No masses or abnormal enhancement. Gallbladder/Biliary System: The gallbladder is absent. Bowel: Pneumatosis in the cecum with no portal venous gas or bowel wall thickening to suggest bowel ischemia. The IVC is decompressed. Soft Tissues: No free fluid or adenopathy. Bones: See above. Bony fusion of the T12-L1 vertebral bodies. 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 Other: Marked aneurysmal dilatation of the distal abdominal aorta measuring up to 7.8 x 7.1 cm on the axial plane. Extensive peripheral thrombus present. 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 IMPRESSION: 1. Acute fracture of the right 11th rib with right-sided hemothorax and evidence of active extravasation. The IVC is decompressed concerning for pending hemodynamic instability. 2. Enlarging markedly enlarged infrarenal abdominal aortic aneurysm measuring up to 7.8 x 7.1 cm, previously 6.9 x 5.9 cm on 08/05/2014. 3. Incidental note is made of pneumatosis in the cecum without additional concerning findings of bowel wall thickening or portal venous gas this may represent a benign incidental finding. However, in the presence of right-sided abdominal pain a GI consultation may be of benefit. RADIA The critical result notification system was initiated by Dr. Saida Donis at 12:38 PM on 04/23/2019. The above critical result findings were discussed with Komal Mendez by Dr. Saida Donis at 12:41 PM on 04/23/2019.
[2019-04-23] MEDS ORDERED: LIDOCAINE 2%-EPI 1:100000 20 ML MDV SUBQ STA (13:06)
--- NOTE | 2019-04-23 14:07 | XRAY Report ---
Reason: LINE PLACEMENT Procedure Date: 04/23/2019 Accession Number: [id number] / [id number] Procedure: XR - Chest for Line Placement CPT Code: Final Report FULL RESULT: EXAM: CHEST RADIOGRAPHY EXAM DATE: 04/23/2019 01:58 PM. CLINICAL HISTORY: LINE PLACEMENT. COMPARISON: CHEST 1 VIEW 04/23/2019 9:43 AM. TECHNIQUE: Spine AP view x2. FINDINGS: Lungs/Pleura: There are no is a pleural drain pointed superomedially in the mid right chest. There is no gross pneumothorax on this supine study. There is persistent mild right basilar increased density which may reflect pleural fluid, similar to before. No new airspace opacities. No interstitial abnormalities. Mediastinum: Borderline cardiomegaly, as before. Mild aortic arch calcification. Other: None. IMPRESSION: 1. Mid right pleural drain now present. 2. Persistent increased density in the mid to lower right chest which may reflect pleural fluid. 3. No new airspace opacities. RADIA
[2019-04-23 14:26] LABS: BASOPHILS % (AUTO) 0.4 %; EOSINOPHILS % (AUTO) 0.1 %; HGB - HEMOGLOBIN 10.6 g/dL (14.0-18.0); LYMPHOCYTES % (AUTO) 12.4 %; MEAN CORPUSCULAR HEMOGLOBIN 26.5 pg (27.0-31.0); MEAN CORPUSCULAR HGB CONC 30.3 g/dL (32.0-36.0); MEAN CORPUSCULAR VOLUME 87.5 fL (80.0-94.0); MEAN PLATELET VOLUME 10.4 fL (7.4-11.4); MONOCYTES % (AUTO) 9.7 %; PLT - PLATELET COUNT 222 10^3/uL (130-450); RED CELL DISTRIBUTION WIDTH 14.9 % (12.0-15.0); WHITE BLOOD COUNT 15.5 x10^3/uL (4.8-10.8)
[2019-04-23 14:34] LABS: INR 1.3 (0.8-1.2); PT - PROTHROMBIN TIME 14.7 secs (9.9-12.6)
[2019-04-23 14:39] LABS: ABNORMAL LYMPHS % (MANUAL) 0 %
[2019-04-23 14:41] LABS: BAND NEUTROPHILS % (MANUAL) 1 %; BASOPHILS # (MANUAL) 0.2 10^3/uL (0-0.1); BASOPHILS % (MANUAL) 1 %; LYMPHOCYTES # (MANUAL) 2.3 10^3/uL (1.5-3.5); LYMPHOCYTES % (MANUAL) 15 %; MONOCYTES # (MANUAL) 0.9 10^3/uL (0.0-1.0)
[2019-04-23 14:42] LABS: DIFFERENTIAL COMMENT MANUAL DIFFERENTIAL; PLATELET ESTIMATE, MANUAL NORMAL (130-450,000) (NORMAL); PLATELET MORPHOLOGY NORMAL APPEARANCE (NORMAL); RBC MORPHOLOGY (MULTIPLE) NORMAL APPEARANCE (NORMAL)
[2019-04-23 15:20] VITALS: BP 80/52
== END 2019-04-23 15:29 | disposition short-term general hospital (02) ==
LOC: EDUNIT# → EDBD → ED 09:10
DX: J94.2 Hemothorax (principal); R57.8 Other shock; R09.02 Hypoxemia; S22.41XA Multiple fractures of ribs, right side, initial encounter for closed fracture; I71.4 Abdominal aortic aneurysm, without rupture; J90 Pleural effusion, not elsewhere classified; E11.9 Type 2 diabetes mellitus without complications; I10 Essential (primary) hypertension; Z79.84 Long term (current) use of oral hypoglycemic drugs
CPT/HCPCS: 32551; 36415; 36430; 71045; 74160; 80053; 83690; 84484; 85025; 85610; 86850; 86900; 86901; 86920; 93005; 99291; 99292; P9016; Q9967